=== PATIENT | female | born 1950 | race Caucasian/White ===

== ENCOUNTER 2019-01-12 20:20 | Observation (INO) ==
--- NOTE | 2019-01-12 21:30 | Emergency Department Note ---
Disposition Clinical Impression: Deep vein thrombosis of lower extremity Qualifiers: Affected thrombotic vein of extremity: unspecified lower extremity proximal vein Chronicity: acute Laterality: left Qualified Code(s): I82.4Y2 - Acute embolism and thrombosis of unspecified deep veins of left proximal lower extremity Disposition: Admitted As Inpatient Condition: Undetermined Referrals: NONE,PCP [Primary Care Provider] - Forms: ED Satisfaction Letter Time of Disposition: 23:27 Extremity Problem HPI - General Chief complaint: ED Extremity Problem,Nontraumatic Stated complaint: R/O DVT [facility] Time Seen by Provider: 01/12/19 20:23 Source: patient Mode of arrival: ambulatory Limitations: no limitations Nursing Notes Reviewed: Yes Vital Signs Reviewed: Yes - History of Present Illness HPI Narrative: 68-year-old female arrives to the emergency department with complaint of left lower extremity swelling. Patient states this started roughly 24 hours ago. Patient went to [facility] emergency department where she was evaluated. There she was found to have an elevated d-dimer. At that time she was placed on a high risk profile and given a shot of Lovenox. She was transferred to [facility] for a DVT study. This demonstrated a very large DVT from the proximal aspect as far as it could visualize on the proximal aspect past the iliacs all the way down to the perineal veins. The patient d enies any chest pain or difficulty breathing. The patient is not hypoxic or tachycardic. She denies any other complaints at this time. She is resting comfortably in the room. She is in no acute distress. Pain Scale: 0 - Related Data Home Medications Medication Instructions Recorded Confirmed Pantoprazole Sodium [Protonix] 40 mg PO DAGMAR 01/12/19 01/12/19 Valacyclovir HCl [Valtrex] 1,000 mg PO TID 01/12/19 01/12/19 Allergies Allergy/AdvReac Type Severity Reaction Status Date / Time prednisone AdvReac See Verified 01/12/19 17:03 Comments All systems ED: reviewed and negative except as stated. Constitutional: Denies: fever, chills, weakness ENT ED: Denies: dysphagia Cardiovascular: Denies: chest pain, dyspnea on exertion Respiratory: Denies: cough, dyspnea, sputum production Gastrointestinal: Denies: abdominal pain, nausea, vomiting Genitourinary: Denies: urgency, dysuria Musculoskeletal: Denies: back pain Integumentary: Denies: rash Neurological: Denies: headache Past Medical History - Past Medical History Attestation: Yes The following information was validated with the patient. 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 - Social History Smoking Status: Former smoker Alcohol use: Reports: none Drug use: Reports: none Physical Exam - General Limitations: no limitations General appearance: alert, in no apparent distress - Head Head exam: atraumatic, normocephalic, normal inspection - Eye Eye exam: Present: normal appearance, PERRL, EOMI - ENT ENT exam: normal exam, normal oropharynx, mucous membranes moist - Neck Neck exam: Present: normal inspection, full ROM, trachea midline - Chest Chest inspection: Present: normal inspection, symmetric chest wall rise - Respiratory Respiratory exam: Present: normal lung sounds bilaterally - Cardiovascular Cardiovascular exam: Present: regular rate, normal rhythm, normal heart sounds - Abdominal Exam Abdominal exam: Present: soft, Non-Tender. Absent: tenderness, distention, guarding, rebound, rigidity - Extremities Exam Extremities exam: Present: full ROM, tenderness, other (Patient is swelling of the left lower extremity roughly twice the size of the right.) - Neurological Exam Neurological exam: Present: alert, oriented X3 - Skin Skin exam: Present: warm, dry, normal color, rash (Left side of the trunk scabbed over consistent with shingles.) Course Vital Signs Temperature 98.1 F 01/12/19 20:32 Pulse Rate 87 01/12/19 20:32 Respiratory Rate 16 01/12/19 20:32 Blood Pressure 110/72 01/12/19 20:32 O2 Sat by Pulse Oximetry 96 01/12/19 20:32 Temperature 98.1 F 01/12/19 20:32 Pulse Rate 87 01/12/19 20:32 Respiratory Rate 16 01/12/19 20:32 Blood Pressure 110/72 01/12/19 20:32 O2 Sat by Pulse Oximetry 96 01/12/19 20:32 Oxygen Delivery Oxygen Delivery Room Air Extremity Problem, Nontraumati - MDM Narrative Medical decision making narrative: Patient's with very large DVT of the left lower extremity. [facility] Given the size of the DVT, we will admit the patient to the hospital for observation. Patient made aware and agrees to plan. We will not start the patient heparin drip she is already received Lovenox. We will obtain basic labs here in the ED and admit the patient to the hospital. Accepted by Dr. Mayer. - Medical Records Medical records reviewed: Yes I reviewed the patient's medical records. - Lab Data Lab results reviewed: Yes I reviewed the patient's lab results. Result diagrams: 01/12/19 23:02 Lab Results 01/12/19 Range/Units 23:02 WBC 6.7 (4.3-11.1) K/mcL RBC 3.70 L (3.82-4.97) M/mcL Hgb 11.0 L (11.5-15.4) g/dL Hct 33.1 L (35.3-44.9) % MCV 89.5 (83.0-100.0) fL MCH 29.7 (28.0-33.3) pg MCHC 33.2 (31.6-35.5) g/dL RDW 14.1 (11.5-14.5) % Plt Count 204 (140-400) K/mcL MPV 9.3 L (9.4-12.4) fL Immature Gran % 0.1 (0-4) % Seg Neutrophils % 54.0 % Lymphocytes % 33.6 % Monocytes % 9.9 % Eosinophils % 1.8 % Basophils % 0.6 % Neutrophils # 3.6 (1.6-8.9) K/mcL Lymphocytes # 2.3 (0.6-4.6) K/mcL Monocytes # 0.7 (0.0-1.3) K/mcL Eosinophils # 0.1 (0.0-0.6) K/mcL Basophils # 0.0 (0.0-0.2) K/mcL - Radiology Data Radiology results reviewed: Yes I reviewed the patient's radiology results.
--- NOTE | 2019-01-12 21:45 | Emergency Department Note ---
Disposition Clinical Impression: Deep vein thrombosis of lower extremity Qualifiers: Affected thrombotic vein of extremity: unspecified lower extremity proximal vein Chronicity: acute Laterality: left Qualified Code(s): I82.4Y2 - Acute embolism and thrombosis of unspecified deep veins of left proximal lower extremity Disposition: Admitted As Inpatient Condition: Undetermined Forms: ED Satisfaction Letter General Adult HPI - General Chief complaint: ED Extremity Problem,Nontraumatic Stated complaint: R/O DVT [facility] Time Seen by Provider: 01/12/19 20:23 Source: patient Mode of arrival: ambulatory Limitations: no limitations - History of Present Illness Pain Scale: 0 - Related Data Home Medications Medication Instructions Recorded Confirmed Pantoprazole Sodium [Protonix] 40 mg PO DAGMAR 01/12/19 01/12/19 Valacyclovir HCl [Valtrex] 1,000 mg PO TID 01/12/19 01/12/19 Allergies Allergy/AdvReac Type Severity Reaction Status Date / Time prednisone AdvReac See Verified 01/12/19 17:03 Comments Constitutional: Denies: fever, chills, weakness ENT ED: Denies: dysphagia Cardiovascular: Denies: chest pain, dyspnea on exertion Respiratory: Denies: cough, dyspnea, sputum production Gastrointestinal: Denies: abdominal pain, nausea, vomiting Genitourinary: Denies: urgency, dysuria Musculoskeletal: Denies: back pain Integumentary: Denies: rash Neurological: Denies: headache Past Medical History - Past Medical History Medical history: Reports: asthma, COPD Surgical history: Reports: non-contributory Psychiatric history: 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 - Social History Smoking Status: Former smoker Alcohol use: Reports: none Drug use: Reports: none Physical Exam - General Limitations: no limitations General appearance: alert, in no apparent distress Course Vital Signs Temperature 98.1 F 01/12/19 20:32 Pulse Rate 87 01/12/19 20:32 Respiratory Rate 16 01/12/19 20:32 Blood Pressure 110/72 01/12/19 20:32 O2 Sat by Pulse Oximetry 96 01/12/19 20:32 Temperature 98.1 F 01/12/19 20:32 Pulse Rate 87 01/12/19 20:32 Respiratory Rate 16 01/12/19 20:32 Blood Pressure 110/72 01/12/19 20:32 O2 Sat by Pulse Oximetry 96 01/12/19 20:32 Oxygen Delivery Oxygen Delivery Room Air Attestation Statement - Attestation Attestation: I examined this patient and my medical decision-making was reviewed with the Resident Physician. I agree with the documented findings, disposition and treatment plan as described except to the extent set forth below. 68 year old female presents to the ed with complaints of possibl DVT. She had a prolonged stay at [facility] where has had a vasovagal syncope that turned into a 30 second CODE session. Adia had ROSC and then was ddischarge about 1 weeks ago and doing well until she started prednisone and then caught shingles and started to have LLE pain. Her D-dimer at [facility] [place] [id number] and she currenlty denies chset pain or shortnss of breath. Adia has a cofirmed DVT and has had lovenox therapry from [place]. [facility].
[2019-01-12 23:19] LABS: Basophils % 0.6 %; Eosinophils # 0.1 K/mcL (0.0-0.6); Eosinophils % 1.8 %; Hematocrit 33.1 % (35.3-44.9); Immature Granulocytes % 0.1 % (0-4); Lymphocytes # 2.3 K/mcL (0.6-4.6); Lymphocytes % 33.6 %; Mean Corpuscular HGB Conc 33.2 g/dL (31.6-35.5); Mean Corpuscular Hemoglobin 29.7 pg (28.0-33.3); Mean Corpuscular Volume 89.5 fL (83.0-100.0); Mean Platelet Volume 9.3 fL (9.4-12.4); Monocytes # 0.7 K/mcL (0.0-1.3); Monocytes % 9.9 %; Neutrophils # 3.6 K/mcL (1.6-8.9); Platelet Count 204 K/mcL (140-400); Red Cell Distribution Width 14.1 % (11.5-14.5)
[2019-01-12 23:27] LABS: INR 1.1; Prothrombin Time 12.2 Seconds (9.4-12.1)
[2019-01-12 23:29] LABS: Activated Partial Thrombo Time 36.6 Seconds (26.0-36.0)
[2019-01-12 23:37] LABS: BUN/Creatinine Ratio 24 (6-26); Blood Urea Nitrogen 11 mg/dL (8-23); Calcium 8.7 mg/dL (8.6-10.3); Carbon Dioxide 26 mEq/L (23-29); Chloride 97 mEq/L (98-107); Glucose 103 mg/dL (70-105); Osmolality,Calculated 270 (280-300); Potassium 3.6 mEq/L (3.5-5.1); Sodium 130 mEq/L (136-145); eGFR For Non-African Americans > 60 (> 60)
--- NOTE | 2019-01-13 02:22 | Internal Med History&Physical ---
<Bentley Mccullough S - Last Filed: 01/13/19 02:26> Date of Encounter: 01/13/19 Time of Encounter: 02:22 Internal Medicine - H&P: HPI Chief complaint: leg swelling Admitted From: Hospital to Hospital Transfer Plans for Post Hospital Care: Home History of present illness: Ms. Guidry is a 68 year old female with PMH of COPD. She presented to [facility] with a 24hr hx of lower left extremity swelling. She states that this had been going on for 1 day. She denies any trauma to the area but has been feeling very week lately. She was recently admitted to [place] and was intubated in the ICU after a vasovagal episode that turned into a CODE, where she then has ROSC. She was discharged about 1 wk ago and was started on prednisone. She has since developed shingles of the left side, localized to one dermatome. She denies significant pain in that area and was given valacyclovir for it, she has completed three doses since getting it prescribed. She denies any fever/chills, difficulty breathing, shortness of breath or chest pain. She was given a theraputic dose of lovenox at approx 0630 PM at [facility] and was transferred to [facility] for DVT study, which showed extensive clotting in the left LE. Past Med Surg Social Fam HX - Past Medical History Medical history: asthma, COPD Additional medical history: vertigo Psychiatric history: anxiety, panic disorder - Past Surgical History Surgical History: non-contributory Additional surgical history: tubal ligation - Social History Smoking Status: Former smoker Smokeless Tobacco Status: No Alcohol use: none Drug use: none Internal Medicine - H&P: Meds Pantoprazole Sodium [Protonix] 40 mg PO DAGMAR 01/12/19 [History] Valacyclovir HCl [Valtrex] 1,000 mg PO TID 01/12/19 [History] Allergy/AdvReac Type Severity Reaction Status Date / Time prednisone AdvReac See Verified 01/12/19 17:03 Comments All Systems PM: A 10-system review of systems was performed and is negative for pertinent findings except as documented above in the HPI. - Constitutional Constitutional: no chills, no fever(s) - Cardiovascular Cardiovascular ROS IM: no chest pain, no dyspnea, no dyspnea on exertion - Respiratory Respiratory: no cough, no dyspnea, no dyspnea on exertion - Gastrointestinal Gastrointestinal: abdominal pain - Musculoskeletal Musculoskeletal ROS IM: back pain - Integumentary Integumentary IM: new lesions, rash, sores - Neurological Neurological ROS: weakness - Endocrine Endocrine IM: fatigue - Hematologic/Lymphatic Hematologic/Lymphatic: no easy bleeding, no easy bruising - Constitutional Vitals: Temp Pulse Resp BP Pulse Ox 98.1 F 87 16 108/70 96 01/12/19 20:32 01/12/19 20:32 01/13/19 00:41 01/13/19 00:41 01/12/19 20:32 General appearance: Present: cooperative, A&O X 3, pleasant Exam: x - Head Head exam: Present: atraumatic, normocephalic - Eye Eye exam: Present: sclera anicteric - ENT ENT exam: Present: mucous membranes moist - Neck Neck exam general surgery: Present: trachea midline - Respiratory Respiratory exam: Present: CTAB. Absent: accessory muscle use, chest wall tenderness, prolonged expiratory phase, respiratory distress, rhonchi, stridor, wheezes, tachypnea - Cardiovascular Cardiovascular exam: Present: RRR, +S1, +S2. Absent: clicks, JVD, rubs - GI/Abdominal GI/Abdominal exam: Present: soft, no peritoneal signs. Absent: distended, firm, guarding, rebound, rigid, tenderness - Extremities Exam Extremities exam: Present: warm - Expanded Lower Extremities Exam Lower Leg exam: Present: erythema, swelling (swelling of the LLE, thigh 2x the size of right side, calf about 2x the size of right side, nontender to palpation) - Back Exam Back exam: Present: rash noted (rash noted to the left side and back, localized to one dermatome) - Neurological Exam Neurological exam: Present: alert, oriented X3, no focal deficits - Psychiatric Psychiatric exam: Present: normal affect, normal mood - Skin Skin exam: Present: dry, intact, warm Internal Med - H&P Results - Labs CBC & Chem 7: 01/12/19 23:02 01/12/19 23:02 Labs: Short CBC 01/12/19 Range/Units 23:02 WBC 6.7 (4.3-11.1) K/mcL Hgb 11.0 L (11.5-15.4) g/dL Hct 33.1 L (35.3-44.9) % Plt Count 204 (140-400) K/mcL Neutrophils # 3.6 (1.6-8.9) K/mcL [facility] 01/12/19 23:02 Sodium 130 L Potassium 3.6 Chloride 97 L Carbon Dioxide 26 BUN 11 Creatinine 0.45 L Glucose 103 Calcium 8.7 - Assessment and plan (1) Deep vein thrombosis of lower extremity Current Visit: Yes Status: Acute Assessment and plan: Pt noticed increasing swelling LLE swelling on 01.11.19 - she originally went to [facility] ER to be evaluated, where she was found to have an elevated D-dimer, 27100 - she was given 1 dose of lovenox and transferred to [facility] for DVT study Preliminary draft from vascular - Bilateral venous duplex appears to be negatiive for DVT and SVT in the right lower extremity - Left lower extremity appears to be positive for acute DVT in the Distal liac, Common femoral, Superficial femoral, Popliteal, and Peroneal veins. - Positive for acute SVT in the Greater saphenous vein. Pt remains without dyspnea, tacycardia, she was not in respiratory distress - she denies hx of malignancy - does have a hx of tobacco abuse, hasn't used in 2 wks She was admitted to [place] and had a prolonged hospital stay where she was give SQ heparin Plan: - admit to medicine for further evaluation and treatment - she was given a theraputic dose of lovenox 630pm at [facility], so she is covered for another ~16 hrs - pt will need referral for outpt management of anticoagulation and follow up for resolution of DVT - will leave AC choice up to day team Qualifiers: Affected thrombotic vein of extremity: unspecified lower extremity proximal vein Chronicity: acute Laterality: left Qualified Code(s): I82.4Y2 - Acute embolism and thrombosis of unspecified deep veins of left proximal lower extremity (2) Shingles Current Visit: Yes Status: Acute Assessment and plan: Pt diagnosed with shingles about 1 wk ago - has rash localized to single dermatome - pt has taken 3 full doses of valacyclovir Plan: - valacyclovir TID - contact precautions - pt not c/o pain, will hold off on pain rx for now Qualifiers: Herpes zoster complications: without complications Qualified Code(s): B02.9 - Zoster without complications (3) COPD (chronic obstructive pulmonary disease) Current Visit: No Status: Chronic Assessment and plan: NOT in acute exacerbation - takes albuterol, spiriva Qualifiers: COPD type: unspecified COPD Qualified Code(s): J44.9 - Chronic obstructive pulmonary disease, unspecified (4) DVT prophylaxis Current Visit: Yes Status: Acute Assessment and plan: Was given one dose of lovenox, will be covered until 630pm tomorrow (5) Lower extremity edema Current Visit: No Status: Acute Assessment and plan: Secondary to DVT. (6) Hyponatremia Current Visit: Yes Status: Acute Assessment and plan: Check BMP in AM - replace fluids 100cc/hr NS (7) Tobacco abuse Current Visit: Yes Status: Acute Assessment and plan: Last cigarette 2 wks ago, NRT ordered prn - Time Spent With Patient Total time spent is greater than 50% in coordination of care (as documented) at patient's floor/unit and/or counseling patient: 25 - 35 minutes <Aislinn Mayer - Last Filed: 01/13/19 03:53> Date of Encounter: 01/13/19 Internal Medicine - H&P: HPI History of present illness: Ms. Guidry is a 68 year old female All Systems PM: A 10-system review of systems was performed and is negative for pertinent findings except as documented above in the HPI. - Constitutional Vitals: Temp Pulse Resp BP Pulse Ox 98.1 F 87 16 108/70 96 01/12/19 20:32 01/12/19 20:32 01/13/19 00:41 01/13/19 00:41 01/12/19 20:32 Internal Med - H&P Results - Labs CBC & Chem 7: 01/12/19 23:02 01/12/19 23:02 Labs: Short CBC 01/12/19 Range/Units 23:02 WBC 6.7 (4.3-11.1) K/mcL Hgb 11.0 L (11.5-15.4) g/dL Hct 33.1 L (35.3-44.9) % Plt Count 204 (140-400) K/mcL Neutrophils # 3.6 (1.6-8.9) K/mcL BMP 01/12/19 23:02 Sodium 130 L Potassium 3.6 Chloride 97 L Carbon Dioxide 26 BUN 11 Creatinine 0.45 L Glucose 103 Calcium 8.7 - Time Spent With Patient Total time spent is greater than 50% in coordination of care (as documented) at patient's floor/unit and/or counseling patient: - Attending Attestation I performed a history and physical exam of the patient and discussed management with the resident. I reviewed the resident's note and agree with the documented findings and plan of care. Padmaja Guidry is a 68 year old woman chronic smoker who was hospitalized recently for acute hypercarbic respiratory failure requiring transfer from [facility] where she was managed on mechanical ventilator and received treatment for pneumonia. Since discharge which was about 11 days ago, she developed shingles and is currently on treatment for it. Over the last few days she noticed swelling and pain in her left leg which progressively worsened. She went to [place] where she was gi tiffany a dose of enoxaparin due to concern for DVT and sent here for evaluation with duplex done confirming an extensive clot burden of DVT. She is not on hormonal therapy, no known malignancy. Family history of heart disease reported. Only risk factors identified are prolonged immobilization from hospital stay and smoking. Physical exam remarkable for significant circumferential swelling of the left leg but non-tender. Shingles noted on single left lumbar dermatome. Since she already received a therapeutic dose of enoxaparin at 1830hrs, will defer further anticoagulation for now. The discussion will need to be held in regards to what oral option will be feasible for her. Also given the extensive burden, she will benefit from hematology consultation for further work up and evaluation. She will need close outpatient follow up. Continue valacyclovir for varicella zoster to complete a 10 day course. CLARITA REED.
[2019-01-13] MEDS ORDERED: Naloxone 0.4 MG/ML INJ IVP PRN (02:23)
[2019-01-13] MEDS ORDERED: 0.9 % Sodium Chloride 1,000 ML IVC SCH (02:30)
[2019-01-13] MEDS ORDERED: Nicotine 7 MG PATCH.TD24 TD PRN (02:43)
[2019-01-13] MEDS: valACYclovir 500 MG TABLET PO SCH ×4 (03:26→15:42)
[2019-01-13 03:58] LABS: BUN/Creatinine Ratio 26 (6-26); Blood Urea Nitrogen 11 mg/dL (8-23); Calcium 8.7 mg/dL (8.6-10.3); Carbon Dioxide 27 mEq/L (23-29); Chloride 98 mEq/L (98-107); Glucose 134 mg/dL (70-105); Osmolality,Calculated 277 (280-300); Potassium 3.4 mEq/L (3.5-5.1); Sodium 133 mEq/L (136-145); eGFR For Non-African Americans > 60 (> 60)
[2019-01-13] MEDS ORDERED: Isovue-370 500 ML BOTTLE IVP ONE (08:43)
[2019-01-13] MEDS ORDERED: *HR* Rivaroxaban 15 MG TABLET PO SCH (09:00)
--- NOTE | 2019-01-13 11:25 | Discharge Summary ---
Date of Encounter: 01/13/19 Time of Encounter: 11:00 - Discharge Diagnosis (1) Deep vein thrombosis of lower extremity Priority: Primary Status: Acute Assessment and Plan: 68 year old female with PMH of COPD. She presented to [facility] with a 24hr hx of lower left extremity swelling. She states that this had been going on for 1 day. She denies any trauma to the area but has been feeling very week lately. She was recently admitted to [place] and was intubated in the ICU after a vasovagal episode that turned into a CODE, where she then has ROSC. She was discharged about 1 wk ago and was started on prednisone. She has since developed shingles of the left side, localized to one dermatome. She denies significant pain in that area and was given valacyclovir for it, she has completed three doses since getting it prescribed. She denies any fever/chills, difficulty breathing, shortness of breath or chest pain. She was given a theraputic dose of lovenox at approx 0630 PM at [place] and was transferred to [facility] for DVT study, which showed extensive clotting in the left LE. She was assessed with extensive lower extremity DVT and started on xarelto. A CTA chest was done and was negative for PE. She has no insurance and was given a free 30 day supply of xarelto. She says she will pay out of pocket for the rest of the duration of her xarelto therapy which will be 3- 6months. She was seen by vascular surgery due to her extensive clot burden and they recommended a 1 week follow up. She was discharged in a stable condition Qualifiers: Affected thrombotic vein of extremity: unspecified lower extremity proximal vein Chronicity: acute Laterality: left Qualified Code(s): I82.4Y2 - Acute embolism and thrombosis of unspecified deep veins of left proximal lower extremity Hospital course: Ms. Guidry is a 68 year old female - Time Spent with Patient Total time spent providing and/or coordinating discharge services: - Discharge Medications Prescriptions: Rivaroxaban [Xarelto] 1 dose PO AD 30 Days #1 pack Home Medications: Valacyclovir HCl [Valtrex] 1,000 mg PO TID 01/12/19 [History] Rivaroxaban [Xarelto] 1 dose PO AD 30 Days #1 pack 01/13/19 [Rx] Allergies/Adverse Reactions: Allergy/AdvReac Type Severity Reaction Status Date / Time prednisone AdvReac Insomnia, Verified 01/13/19 10:41 loss of appetite Date of admission: 01/12/19 23:35 Primary care physician: PCP NONE Consults: 01/13/19 10:59 Consult to Oncology [CONS] Routine Consulting Provider: Oncology [facility] Reason for Consult: extensive lower extremity dvt, recommend anticoagulation therapy Call Completed: Yes 01/13/19 11:18 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 Office will call patient with date and time of appointment. Thank you)
--- NOTE | 2019-01-13 12:55 | Oncology Inp Consult Note ---
<Hermilo Cooper R - Last Filed: 01/14/19 14:09> Date of Encounter: 01/13/19 Time of Encounter: 16:00 Assessment and Plan (1) Deep vein thrombosis of lower extremity Status: Acute Assessment and plan: Venous doppler showed acute thrombus from left distal iliac to left great saphenous Most likely provoked due to recent hospital admission Plan: Chest CTA shows no acute PE Currently on Xarelto 15 mg po bid benny Given therapeutic dose of Lovenox at admission Consider continuing anticoagulation for 3-6 months due to first provoked DVT Qualifiers: Affected thrombotic vein of extremity: unspecified lower extremity proximal vein Chronicity: acute Laterality: left Qualified Code(s): I82.4Y2 - Acute embolism and thrombosis of unspecified deep veins of left proximal lower extremity (2) Lower extremity edema Status: Acute Assessment and plan: Started on Sunday, and admitted to [facility] as chief complaint 2-3+ left LE edema noted Plan: Avoid compression acutely Consider ambulation as tolerated Elevate legs while laying down Consider outpatient physical therapy at discharge Vascular consulted, appreciate recommendations (3) Shingles Status: Acute Assessment and plan: Rash localized on left rib dermatome diagnosed 1 wk ago Finished 3 doses of valacyclovir Plan: Continue Valcyclovir regimen for 10 days Contact precautions Qualifiers: Herpes zoster complications: without complications Qualified Code(s): B02.9 - Zoster without complications (4) DVT prophylaxis Status: Acute Assessment and plan: Currently on Xarelto - Data of Consult Requesting Physician: Aislinn Mayer MD Primary Care Provider: PCP NONE - Consult Narrative History of present illness: Ms. Guidry is a 68 y/o female with a pMHx of COPD who was admitted for large provoked DVT assessment. She initially had left pelvic/groin pain found on Sunday and presented to [facility] with significant lower left extremity swelling. She denies any recent trauma, recent travel, however she recently was admitted to [facility]. She was admitted for respiratory failure and managed with mechanical ventilation. While there, she had a vasovagal episode which resulted in a code, achieved ROSC, and transferred to ICU. She was discharged on prednisone after 6 days at the hospital. While at home, she states that she recently developed shingles along her left lumbar dermatome and finished 3 doses of valvacyclovir. She denies any recent fevers, chest pain, or shortness of breath. Denies any past DVT or DVT's in family. Admits to smoking, however has recently stopped for past 2 weeks. She was transferred from [facility] to [facility] on 01/13 [place] [address] and confirmed DVT on CTA and given therapeutic dose of Lovenox. Past Med Surg Social Fam HX - Past Medical History Medical history: asthma, COPD Additional medical history: vertigo Psychiatric history: anxiety, panic disorder - Past Surgical History Surgical History: non-contributory Additional surgical history: tubal ligation - Social History Smoking Status: Former smoker Smokeless Tobacco Status: No Alcohol use: none Drug use: none - Additional Family History Additional family history: No DVT in family Medications and Allergies Valacyclovir HCl [Valtrex] 1,000 mg PO TID 01/12/19 [History] Rivaroxaban [Xarelto] 1 dose PO AD 30 Days #1 pack 01/13/19 [Rx] Allergy/AdvReac Type Severity Reaction Status Date / Time prednisone AdvReac Insomnia, Verified 01/13/19 10:41 loss of appetite Constitutional: Present: weakness. Absent: chills, fever(s) Cardiovascular: Present: leg edema. Absent: chest pain Respiratory: Absent: dyspnea on exertion Musculoskeletal: Present: as per HPI Integumentary: Present: swelling Oncology - Exam - Constitutional General appearance: average body habitus, cooperative, no acute distress, no febrile - Head Head exam: Present: atraumatic - ENT ENT exam: Present: mucous membranes moist, normal oropharynx - Respiratory Respiratory exam: Present: CTAB. Absent: respiratory distress - Cardiovascular Cardiovascular exam: Present: RRR, +S1, +S2 - GI/Abdominal GI/Abdominal exam: Present: normal bowel sounds, soft. Absent: tenderness - Extremities Exam Additional comments: 2-3+ nonpitting edema to lower left extremity extending into thigh Dorsalis pedis +1 - Neurological Exam Neurological exam: Present: alert, oriented X3, no focal deficits, strengths equal and symetr throughout - Psychiatric Psychiatric exam: Present: normal affect, normal mood - Skin Skin exam: Present: dry, intact, normal color, warm Consult Discharge Plan - Plan Referrals: Sathya De Luna MD [Partnered Physician] - (Web request. Office will call patient with date and time of appointment. Thank you) Prescriptions: Rivaroxaban [Xarelto] 1 dose PO AD 30 Days #1 pack Inpatient Charges Provider: Dr. Elvia Nugent <Gab Nugent S - Last Filed: 01/14/19 19:13> Date of Encounter: 01/13/19 - Data of Consult Requesting Physician: Aislinn Mayer MD Primary Care Provider: PCP NONE Past Med Surg Social Fam HX - Family History Father Living Status: Mother Living Status: Inpatient Charges Provider: Dr. Elvia Nugent Consult - Inpatient: [id number] - Attending Attestation I examined this patient and my medical decision-making was reviewed with medical student. Hermilo Cooper I agree with the documented findings, disposition and treatment plan as described except to the extent set forth below. 1. Acute left lower extremity DVT. She has significant swelling and pain. Concerned about phlegmasia cerulea dolens. Vascular surgery noted. She does not have phlegmasia and no need for thrombectomy She has involvement of left iliac veins in addition to deeper veins in the left lower extremity. May consider CT angiogram abdomen/CT abdomen in the near future CT angiogram chest negative for PE This is her first episode and consider provoked given her recent hospitalization and to ICU at [facility] 2. Syncopal episode followed by ICU admit at [facility] hospital discharge on 01/02/2019. She was intubated during hospitalization sent home on prednisone. After she went home she developed herpes zoster in the left chest wall and currently treated She is being transitioned to Xarelto.
[2019-01-13 15:13] VITALS: BP 115/70
--- NOTE | 2019-01-13 18:40 | Vascular/Endovasc Consult Note ---
Date of Encounter: 01/13/19 Time of Encounter: 17:00 Assessment and Plan (1) Deep vein thrombosis of lower extremity Status: Acute The pathophysiology and natural history of venous disorders was discussed the patient and all questions were answered. The patient has an extensive left iliac through tibial deep vein thrombosis. She has no signs or symptoms of phlegmasia. There is no acute indication for venous mechanical thrombectomy at this time. She reports symptomatic improvement since beginning anticoagulation. Her mobility has improved. She denies any signs or symptoms of pulmonary embolus. She was informed regarding the signs or symptoms of pulmonary was no structure seek immediate medical attention for any signs of chest pain or shortness of breath emerged. Given the patient has subjective improvement of her symptoms she may be discharged on Xarelto. She will need to follow up in vascular clinic in 1-2 weeks for further evaluation. Persistent or progressive symptoms are require intervention. Qualifiers: Affected thrombotic vein of extremity: unspecified lower extremity proximal vein Chronicity: acute Laterality: left Qualified Code(s): I82.4Y2 - Acute embolism and thrombosis of unspecified deep veins of left proximal lower extremity (2) Shingles Status: Acute Qualifiers: Herpes zoster complications: without complications Qualified Code(s): B02.9 - Zoster without complications (3) COPD (chronic obstructive pulmonary disease) Status: Chronic Qualifiers: COPD type: unspecified COPD Qualified Code(s): J44.9 - Chronic obstructive pulmonary disease, unspecified - History of Present Illness Consult date: 01/13/19 Requesting physician: Alexandra Frazier Consult reason: Acute deep vein thrombosis Chief complaint: Left leg pain and swelling History of present illness: Ms. Guidry is a 68 year old female with a history of chronic obstructive pulmonary disease reports that she was recently hospitalized at [facility] in the intensive care unit. She was intubated. After discharge the patient was initially doing well but then states that she declined after developing shingles wall on prednisone. The patient has decreased mobility and then developed and subsequently developed acute left leg pain and swelling. She presented to the emergency room is found have a left ileal to tibial deep vein thrombosis. The patient was then sutured with Lovenox and then transitioned to Xarelto. The patient reported her hospitalization decreased pain and swelling of the leg. She states her mobility has improved. Vascular surgery was counseled that due to the extent for deep vein thrombosis and the degree of edema. The patient currently denies any chest pain or shortness of breath. Past Med Surg Social Fam HX - Past Medical History Medical history: asthma, COPD Additional medical history: vertigo Psychiatric history: anxiety, panic disorder - Past Surgical History Surgical History: non-contributory Additional surgical history: tubal ligation - Social History Smoking Status: Former smoker Smokeless Tobacco Status: No Alcohol use: none Drug use: none - Family History Father Living Status: Mother Living Status: Medications and Allergies Valacyclovir HCl [Valtrex] 1,000 mg PO TID 01/12/19 [History] Rivaroxaban [Xarelto] 1 dose PO AD 30 Days #1 pack 01/13/19 [Rx] Allergy/AdvReac Type Severity Reaction Status Date / Time prednisone AdvReac Insomnia, Verified 01/13/19 10:41 loss of appetite All Systems Review: The remainder of the systems were reviewed and are negative - Constitutional Constitutional: no chills, no fever(s) - Cardiovascular Cardiovascular: no chest pain at rest, no dyspnea at rest - Vascular Vascular: lower extremity swelling - Hematological/Lymphatic Hematologic/Lymphatic: no easy bleeding Exam Vital Signs, Last 4 Hours Temp Pulse Resp BP Pulse Ox 01/13/19 15:13 98.2 F 92 15 115/70 92 General: Present: Conversant, No Apparent Distress HEENT: Present: Atraumatic, Normocephaly, Trachea midline, Pupils equal Neck: Absent: JVD, Lymphadenopathy, Left Carotid bruit, Right Carotid bruit Cardiac: Present: Reg Rate and Rhythm, Normal S1 and S2. Absent: No Murmur Lungs: Present: Normal Breath Sounds, No Wheeze, Rales, Rhonchi Neuro: Present: Alert and responsive, No focal deficits noted, Cranial nerves grossly intact, Motor nerves grossly intact, Sensory nerves grossly intact Abdomen: Present: Soft, Non-tender. Absent: Hepatosplenomegaly, Masses Vascular: Present: Normal capillary refill, Pulse, normal, Edema (2+ upper e xtremity edema, no phlegmasia, compartments soft). Absent: Cyanosis Skin: Present: No rashes noted on visualized skin. Absent: Wound/ulcer(s) Musculoskeletal: Absent: No Chest Wall Tenderness Consult Discharge Plan - Plan Referrals: Sathya De Luna MD [Partnered Physician] - (Web request. Office will call patient with date and time of appointment. Thank you) Prescriptions: Rivaroxaban [Xarelto] 1 dose PO AD 30 Days #1 pack
== END 2019-01-13 18:00 | disposition home or self-care (01) ==
LOC: 3NENU 20:20 → EMEROOARM 20:20 → 3NENU 01-13 00:43 → 3ANU 01-13 15:06
PROVIDERS: ADMIT Internal Medicine; ATTEND Internal Medicine